=== PATIENT | female | born 1950 | race Caucasian/White ===

== ENCOUNTER 2022-04-11 13:52 | Outpatient (CLI) | payer MEDICARE | END 2022-04-11 13:53 | disposition home or self-care (01) | LOC: SCSRAD 13:52 | PROVIDERS: ATTEND Family Medicine | DX: J16.8 Pneumonia due to other specified infectious organisms (principal) | CPT/HCPCS: 71046; U0003; U0005 ==

== ENCOUNTER 2023-02-12 12:38 | Outpatient (CLI) | payer MEDICARE, OTHER | END 2023-02-12 12:39 | disposition home or self-care (01) | LOC: NM 12:38 | PROVIDERS: ATTEND Family Medicine | DX: K81.0 Acute cholecystitis (principal) | CPT/HCPCS: 78227; A9537 ==

== ENCOUNTER 2023-03-06 06:30 | Day surgery (SDC) | payer MEDICARE, OTHER ==
[2023-02-28 08:23] VITALS: BMI 31.3
[2023-03-06] MEDS ORDERED: CEFAZOLIN 2 GM VIAL ONE (07:44)
[2023-03-06] MEDS ORDERED: Sodium Chloride 0.9% 100 ML ONE (07:44)
[2023-03-06] MEDS ORDERED: fentaNYL PF 100 MCG/2 ML SYRINGE ONE ×3 (08:20→10:15)
[2023-03-06] MEDS ORDERED: PROPOFOL 20 ML ONE (08:21)
[2023-03-06] MEDS ORDERED: Lidocaine 1% PF 5 ML VIAL ONE (08:21)
[2023-03-06] MEDS ORDERED: Indocyanine Green 25 MG/10 ML VIAL ONE (08:22)
[2023-03-06] MEDS ORDERED: Bupivacaine 0.25% HCL 30 ML VIAL ONE (08:22)
[2023-03-06] MEDS ORDERED: EPINEPHrine 1 MG/ML VIAL ONE (08:22)
[2023-03-06] MEDS ORDERED: Rocuronium Bromide 10 MG/ML (10ML VIAL) ONE (08:48)
[2023-03-06] MEDS ORDERED: Ondansetron PF 4 MG/2 ML Vial ONE (09:21)
[2023-03-06] MEDS ORDERED: Dexamethasone 4 mg/ml Vial ONE (09:21)
[2023-03-06] MEDS ORDERED: SUGAMMADEX SODIUM 200 MG/2 ML VIAL ONE (09:35)
[2023-03-06] MEDS ORDERED: Albuterol HFA (OR) 200 PUFF INH ONE (09:45)
[2023-03-06] MEDS ORDERED: HYDROcodone/Acetaminophen 5/325 mg Tablet ONE (11:28)
== END 2023-03-06 12:26 | disposition home or self-care (01) ==
LOC: SDC 06:30
PROVIDERS: ATTEND Surgery
PROC: 0FT44ZZ Resection of Gallbladder, Percutaneous Endoscopic Approach (ICD-10-PCS; principal; 2023-03-06)
DX: K80.10 Calculus of gallbladder with chronic cholecystitis without obstruction (principal); E11.9 Type 2 diabetes mellitus without complications; E78.5 Hyperlipidemia, unspecified; I10 Essential (primary) hypertension; F32.A Depression, unspecified; L40.9 Psoriasis, unspecified; J45.909 Unspecified asthma, uncomplicated; Z79.899 Other long term (current) drug therapy; Z79.84 Long term (current) use of oral hypoglycemic drugs; Z90.89 Acquired absence of other organs; Z98.890 Other specified postprocedural states; Z88.8 Allergy status to other drugs, medicaments and biological substances
CPT/HCPCS: 47562; J0171; 88304; C1776; J1100; J2405; J2704; J3490; S0020